=== PATIENT | female | born 1975 | race American Indian/Alaskan Native ===

== ENCOUNTER 2019-01-20 07:49 | Day surgery (SDC) | payer BC ==
--- NOTE | 2019-01-19 11:41 | History and Physical Report ---
History of Present Illness Date of examination: 01/15/19 Date of admission: 01/20/19 Chief complaint: here for ablation and btl History of present illness: Pt has had longe history of DUB with menorrhagia and dysmenorrhea for the last two years. She is s/p workup including embx that was negative as well as hysteroscopy D&C that was negative. Pt had mirena placed but continued to have bleeding with it being in place. The pain was improved and the bleeding intially was less but has not returned to being heavy as it was prior to placement. I d/w pt removal of the device, vs continued observation, vs endometrial ablation with BTL and finally hyst. Pt initially stated she no longer was concerned with being able to have a baby but wanted to stop bleeding. She now desires endometrial ablation with BTL via salpingectomy. pt understands that her body habitus will make the procedure difficult and that the planned procedures may not be jane to be performed. She also understands that this procedure is to help with bleeding but that she may still have pain associated with her menstrual cycle whether she bleeds or not. She finally understands risk to vital organs as well as riks of failure of the ablation and continued bleed requiring more treatment. Cosnents have been signed and placed on the chart. 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 of genital herpes: yes Active Medications (reviewed today): LYSTEDA 650 MG ORAL TABLET (TRANEXAMIC ACID) 1300 mg 3 times daily (3900 mg/day) for up to 5 days during monthly menstruation MAGNESUEM () DICLOFENAC () MULTI VITAMIN () ALBUTROL () Current Allergies (reviewed today): * SHELLFISH (Critical) * EGGPLANT (Critical) Past Medical History: Arthritis Asthma Past Surgical History: D&C: Hysteroscopy: Cholecystectomy Social History: Patient is no e/t/d Risk Factors: Smoked Tobacco Use: Never smoker Smokeless Tobacco Use: Never Drug use: no HIV high-risk behavior: no Alcohol use: yes Type: occ wine Exercise: yes Times per week: occ Seatbelt use: 100 % Mammogram History: Date of Last Mammogram: 03/04/2018 Results: Normal Bilateral, per pt PAP Smear History: Date of Last PAP Smear: 03/04/2018 Results: Normal, per pt Laboratory Results Urine HCG: negative Past History Past Medical History: asthma, other (arthritis) Past Surgical History: cholecystectomy, section, D&C, other (hysteroscopy) 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: 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 PAP smear Family/Genetic History: other (see hpi) Social history: no significant social history, single Medications and Allergies Allergies Allergy/AdvReac Type Severity Reaction Status Date / Time shellfish derived Allergy Lip Verified 01/09/19 16:25 swelling Home Medications Medication Instructions Recorded Confirmed Last Taken Type Diclofenac Sodium 75 mg PO Q12H PRN 01/09/19 01/09/19 Unknown History Naproxen [EC-Naprosyn] 375 mg PO Q12H PRN 01/09/19 01/09/19 Unknown History Active Meds: Active Medications Celecoxib (Celebrex) 200 mg PO PREOP NR Stop: 01/20/19 23:00 Gabapentin (Neurontin) 300 mg PO PREOP NR Stop: 01/20/19 23:00 Lactated Ringer's (Lactated Ringers) 1,000 mls @ 100 mls/hr IV DIRECT MILTON Cefazolin Sodium (Ancef/Sterile Water 2 Gm/20 Ml) 2 gm in 20 mls @ 80 mls/hr IV PREOP NR; Protocol Midazolam HCl (Versed) 2 mg IV PREOP NR Stop: 01/20/19 23:00 Review of Systems All systems: negative - Physical Exam Cardiovascular: Normal S1, Normal S2 Lungs: Positive: Clear to auscultation, Normal air movement Abdomen: Positive: normal appearance, soft. Negative: distention, tenderness, guarding Genitourinary (Female): Positive: other (deferred until EUA) Extremities: Positive: normal. Negative: tenderness, edema Deep Tendon Reflex Grade: Normal +2 Results All other labs normal. Assessment and Plan - Patient Problems (1) Menorrhagia with regular cycle Status: Acute Plan to address problem: -to OR for hysterscopy with novasure ablation and removal of IUD -consents signed and placed on the chart (2) Encounter for sterilization Status: Acute Plan to address problem: -pt desires bilateral salpingectomy if possible. All risk, benefits and alternatives were d/w pt and questions were addressed and answered.
[~2019-01-20 07:49] MED LIST: ANCEF/STERILE WATER 2 GM/20 ML 2 GM/20 ML SYRINGE IV NR; LACTATED RINGERS 1,000 ML IV SCH; NEURONTIN PO NR; VERSED IV NR
[2019-01-20] MEDS ORDERED: SUBLIMAZE IV PRN (08:53)
[2019-01-20] MEDS ORDERED: ZOFRAN IV PRN (08:53)
--- NOTE | 2019-01-20 08:53 | Anesthesia Consultation ---
Anesthesia Consult and Med Hx Date of service: 01/20/19 - Airway Anesthetic Teeth Evaluation: Good ROM Head & Neck: Adequate Mental/Hyoid Distance: Adequate Mallampati Class: Class II Intubation Access Assessment: Good - Pre-Operative Health Status ASA Pre-Surgery Classification: ASA2 Proposed Anesthetic Plan: General - Pulmonary Hx Asthma: Yes (As a child) - Central Nervous System Hx Psychiatric Problems: No - Other Systems Hx Alcohol Use: Yes (Occas) Hx Cancer: No
--- NOTE | 2019-01-20 08:53 | Anesthesia Day of Surgery ---
Anesthesia Day of Surgery - Day of Surgery Patient Examined: Yes Patient H&P Reviewed: Yes Patient is NPO: Yes
[2019-01-20] MEDS ORDERED: TYLENOL PO NR (08:55)
[2019-01-20] MEDS ORDERED: ANCEF/STERILE WATER 2 GM/20 ML 2 GM/20 ML SYRINGE IV NR (09:00)
[2019-01-20] MEDS ORDERED: SUBLIMAZE ONE (09:37)
[2019-01-20] MEDS ORDERED: XYLOCAINE MPF 2% ONE (09:37)
[2019-01-20] MEDS ORDERED: ZEMURON IV ONE ×2 (09:37→12:11)
[2019-01-20] MEDS ORDERED: DIPRIVAN 10 MG/ML IV ONE (09:38)
[2019-01-20] MEDS ORDERED: MARCAINE 0.5% INFILTRATI ONE ×3 (09:39→12:45)
[2019-01-20] MEDS ORDERED: DECADRON ONE (09:52)
[2019-01-20] MEDS ORDERED: ZOFRAN ONE (09:52)
[2019-01-20] MEDS ORDERED: BLOXIVERZ ONE (12:44)
[2019-01-20] MEDS ORDERED: NEO SYNEPHRINE/NS Syringe(OR USE) IV ONE (12:44)
[2019-01-20] MEDS ORDERED: ROBINUL ONE (12:44)
--- NOTE | 2019-01-20 12:54 | Operative Report ---
Operative Report Operative Report: Date of procedure: 01/20/2019 Pre-operative diagnosis: Menometrorrhagia Morbid obesity Failed medical therapy Desires permanent sterilization Post-operative diagnosis: Same plus no evidence of Mirena noted on hysteroscopy or on pelvic exam Procedure name(s): 1. Hysteroscopy 2. NovaSure ablation 3. Bilateral tube ligation via placement of Filshie clips Surgeon: Ivette May M.D. Dietary Services Director: JANES Anesthesia: Gen. endotracheal anesthesia EBL: Minimal Urine output: 300 mL of clear urine out at end of procedure Fluids: 100 mL Findings: Normal cervix slightly deviated to the left side. There was no evidence of Mirena device noted on exam or on hysteroscopy. Slightly thickened endometrium otherwise normal endometrial cavity. Grossly normal ovaries bilaterally. Adhesions of the adnexa bilaterally to the pelvic sidewalls. Adhesions of the entire anterior uterus to the posterior aspect of the anterior abdominal wall. Indications: Patient with a history long history of menometrorrhagia with IUD in place. Patient desires to have NovaSure ablation with bilateral tubal ligation. All risks benefits and alternatives were discussed with the patient. Consents were signed and placed on the chart. Procedure: Patient was taken to the operating room where she was placed under general endotracheal anesthesia she was then prepped and draped in normal sterile fashion in dorsal lithotomy position with legs in Yvan stirrups. Straight catheterization of the bladder was performed at this time. Sterile speculum was placed inside of the vagina to visualize the entire cervix. The anterior lip of the cervix was grasped with a single-tooth tenaculum and the uterus was sounded to 10 cm. The cervix was then dilated in order to allow passage of the hysteroscope. Hysteroscopy yielded the above-stated findings. The cervical length was noted to be 4 cm. The uterine cavity length was calculated to be 6 cm. The cervix was then dilated more to allow passage of the NovaSure device. With placement of the NovaSure device the cavity width was noted to be 5.0 cm. The integrity of the seal was then tested. The device did pass the testing. The power that was used for the NovaSure ablation was 110 carson. The amount of time of the ablation was 1 minute and 11 seconds seconds. Hysteroscopy following the ablation noted that there was adequate cauterization of the uterine cavity. All instruments were removed from the vagina and the cervix. Patient tolerated the procedure well. All counts were correct.
--- NOTE | 2019-01-20 12:54 | Short Stay Summary ---
Short Stay Documentation - History Social history: no significant social history, single - Allergies and Medications Current Medications: Allergies shellfish derived Allergy (Verified 01/09/19 16:25) Lip swelling Home Medications Medication Instructions Recorded Confirmed Last Taken Type Diclofenac Sodium 75 mg PO Q12H PRN 01/09/19 01/09/19 Unknown History Naproxen [EC-Naprosyn] 375 mg PO Q12H PRN 01/09/19 01/09/19 Unknown History Active Medications Acetaminophen (Tylenol) 650 mg PO ONCE NR Stop: 01/20/19 16:00 Celecoxib (Celebrex) 200 mg PO PREOP NR Stop: 01/20/19 23:00 Last Admin: 01/20/19 08:26 Dose: 200 mg Documented by: Fentanyl (Sublimaze) 50 mcg IV Q5MIN PRN PRN Reason: Pain , Severe (7-10) Stop: 01/20/19 16:00 Gabapentin (Neurontin) 300 mg PO PREOP NR Stop: 01/20/19 23:00 Last Admin: 01/20/19 08:26 Dose: 300 mg Documented by: Lactated Ringer's (Lactated Ringers) 1,000 mls @ 100 mls/hr IV DIRECT [place]TON Last Admin: 01/20/19 08:27 Dose: 100 mls/hr Documented by: Cefazolin Sodium (Ancef/Sterile Water 2 Gm/20 Ml) 2 gm in 20 mls @ 80 mls/hr IV PREOP NR; Protocol Stop: 01/20/19 23:59 Midazolam HCl (Versed) 2 mg IV PREOP NR Stop: 01/20/19 23:00 Ondansetron HCl (Zofran) 4 mg IV ONCE PRN PRN Reason: Nausea And Vomiting Stop: 01/20/19 16:00 - Discharge Diagnoses (1) Menorrhagia with regular cycle Status: Acute (2) Encounter for sterilization Status: Acute Short Stay Discharge Plan Follow up with: KATARINA LONDON MD [Primary Care Provider] - 7 Days
[2019-01-20 13:48] VITALS: BP 130/79
[2019-01-20] MEDS ORDERED: PERCOCET 5/325 PO PRN (14:00)
--- NOTE | 2019-01-20 17:32 | Post Anesthesia Evaluation ---
- Post Anesthesia Evaluation Patient Participated: Yes Airway Patent: Yes Stable Respiratory Function: Yes Nausea/Vomiting: No Temp > 96.8F: Yes Pain Manageable: Yes Adequeate Hydration: Yes Anesthesia Complications: No Block Receding Appropriately: Not Applicable Patient on Ventilator: No
== END 2019-01-20 14:30 | disposition home or self-care (01) ==
LOC: OR 07:49
PROVIDERS: ATTEND Obstetrics & Gynecology
DX: Z30.2 Encounter for sterilization (principal); N92.0 Excessive and frequent menstruation with regular cycle; J45.909 Unspecified asthma, uncomplicated; M19.90 Unspecified osteoarthritis, unspecified site; E66.01 Morbid (severe) obesity due to excess calories; Z90.49 Acquired absence of other specified parts of digestive tract; Z91.013 Allergy to seafood; Z79.899 Other long term (current) drug therapy; Z72.89 Other problems related to lifestyle; Z98.890 Other specified postprocedural states; Z98.891 History of uterine scar from previous surgery; Z68.42 Body mass index [BMI] 45.0-49.9, adult
CPT/HCPCS: 58563; 58671; 81025; J0690; J1100; J2370; J2405; J2704; J2710; J3010; J7120